=== PATIENT | female | born 1990 | race Caucasian/White ===

== ENCOUNTER 2020-12-28 17:22 | Emergency (ER) | payer MEDICAID, SELFPAY ==
[2020-12-28 17:33] VITALS: BP 129/78; PULSE 77; RESP 18; TEMP 36.8; O2SAT 97
[2020-12-28] MEDS: Ibuprofen 600 MG TAB PO (17:53)
[2020-12-28] MEDS: Acetaminophen 325 MG TAB 650 MG PO (17:53)
--- NOTE | 2020-12-28 18:18 | ED.GENADUL_ITS ---
Discharge Plan Disposition Patient Disposition: HOME Condition: Good Discharge Details Clinical Impression: Strain of gastrocnemius tendon of right lower extremity Primary Care Provider: Lynsey,Local ED Provider: Cinthia Falcon Home Meds and New Rx's Prescriptions: No Action estradiol [Estradiol Transdermal Patch] 0.1 mg/24 hr Patch Weekly RF: 0 Discharge Instructions Additional Instructions: Take ibuprofen and Tylenol as needed for pain You may take 2 mg of ibuprofen every 6-8 hours and Tylenol 650 mg every 4-6 hours Ice, weightbearing as tolerated You may use crutches as needed to assist you with ambulation Follow-up with your primary care physician in 1 week for reevaluation You may need physical therapy with persistent pain Return earlier should you have new or worsening complaints Compression can sometimes help with your symptoms Stand Alone Forms: Work Release Medical Decision Making Suspect gastrocnemius strain given clinical exam findings and mechanism Chadwick wrap applied, crutches supplied PCP follow-up Ice, ibuprofen, Tylenol Work note supplied Return precautions discussed and patient expressed standing Differential Diagnosis Differential Diagnosis: Fracture, strain, contusion, Achilles rupture Medical Records Medical records reviewed: Yes I reviewed the patient's medical records. HPI General Mode of arrival: ambulatory . Date/Time Provider Initiated Documentation: 12/28/20 17:36 . Limitations to Documentation: no limitations . Information obtained by: patient . HPI Narrative: This 30-year-old female presents with pain to her popliteal region with popping sensation after running during softball game. Patient was extending her foot while running when she felt a pop in her calf region and had instant pain. She was still able to ambulate. She denies any falls or additional injuries. She states the pain is exacerbated with any pressure of standing. She is otherwise reportedly healthy. She denies any chance of . The event occurred just prior to arrival the pain is described as sharp Related Data Home Medications Medication Instructions Recorded Confirmed estradiol [Estradiol Transdermal 12/28/20 Patch] Allergies Allergy/AdvReac Type Severity Reaction Status Date / Time No Known Allergies Allergy Unverified 12/28/20 17:38 General Stated Complaint: Orthopedic DAHLIA: 3 Review of Systems Narrative: Review of systems obtained x3 aside from where indicated in HPI PFSH Social History Smoking risk assessment performed?: No Alcohol Intake: current Alcohol Intake frequency: holidays/special occasions only Substance use type: marijuana Do you feel safe at home: Yes Do you feel safe in your relationship?: Yes Exam Const General: cooperative Extrem Other: Pain with palpation of her proximal calf region, no obvious swelling, tenderness, no erythema, negative Roa test, neurovascularly intact, no knee instability, no obvious effusion, no tenderness with palpation of her femur or tib-fib region, no ankle tenderness, no hip tenderness Course Vital Signs Vital signs: Vital Signs Temperature 36.8 C 12/28/20 17:33 Pulse 77 12/28/20 17:33 Respiratory Rate 18 12/28/20 17:33 Blood Pressure 129/78 12/28/20 17:33 Pulse Oximetry 97 12/28/20 17:33 Temperature 36.8 C 12/28/20 17:33 Temperature Source Temporal Artery Scan 12/28/20 17:33 Pulse 77 12/28/20 17:33 Respiratory Rate 18 12/28/20 17:33 Respiratory Effort 12/28/20 17:42 Blood Pressure 129/78 12/28/20 17:33 Blood Pressure Position Supine 12/28/20 17:33 Pulse Oximetry 97 12/28/20 17:33 Oxygen Delivery Method Room Air 12/28/20 17:33 Oxygen Flow Rate 0 12/28/20 17:33 Pain Level 8 12/28/20 17:33
== END 2020-12-28 18:15 | disposition home or self-care (01) ==
PROVIDERS: Emergency Provider Physician Assistant
DX: S86.111A Strain of other muscle(s) and tendon(s) of posterior muscle group at lower leg level, right leg, initial encounter (principal); X50.9XXA Other and unspecified overexertion or strenuous movements or postures, initial encounter; Y93.64 Activity, baseball
CPT/HCPCS: 99283

== ENCOUNTER 2024-06-11 10:13 | Outpatient (CLI) | payer MEDICAID, SELFPAY ==
[2024-06-11 10:25] VITALS: BP 125/90; PULSE 73; RESP 18; TEMP 36.7; O2SAT 100
--- NOTE | 2024-06-11 10:27 | PDOC.PAIN ---
Date of service: 06/11/24 Time of Service: 11:10 Pain Managment Procedure Note Procedure Note Procedure Note: Diagnostic Lumbar Facet Joint Injection ? Location: Bilateral Lumbar Facet Joints ? Levels: Right L3-4, bilat L4-5, L5-S1 ? Pre-procedure Diagnosis: M47.817 Spondylosis without myelopathy or radiculopathy, lumbosacral region M47.816 Spondylosis without myelopathy or radiculopathy, lumbar region ? Post-procedure Diagnosis:? The same as above ? Sedation:? None ? Estimated blood loss:? less than 2 cc ? Surgeon: Owen Timmosn MD COMMENT: .Decision was made to proceed with intra-articular facet injections for the possibility of not having to do medial branch blocks and radiofrequency ablation if patient get long lasting relief (> 3 months). ? Procedure Detail:? The procedure and potential risks were explained to the patient and informed written consent was obtained. The patient was escorted to the procedure room and placed in the prone position. Pillows were utilized for proper positioning and comfort.? Time out was performed in the procedure room with nursing staff confirming the patient's identity, procedure to be performed, allergies, and any blood thinning or anti-platelet medications.? Sterile technique was maintained throughout the procedure.? The patient's lumbosacral area was prepped with chlorhexidine and draped in a sterile fashion. Lidocaine 1% was used to anesthetize the skin. An oblique fluoroscopic view was obtained, with visualization of the facet joint.? A 22gauge, Quincke needle was gently advanced through the facet capsule.? Needle placement was confirmed with fluoroscopy in AP, oblique, and lateral views by injecting 0.25cc of contrast.? 20 mg of Depomedrol and 0.5ml of 0.5% bupivacaine was injected into the capsule at L3-4 Right ,L4-5 and L5-S1 Bilateral. ? The patient tolerated the procedure well and was transported to recovery area for observation and discharge instructions. Permanent images saved and recorded. Plan:? Follow up prn COMMENT:Pain went from 10 to 08/10. Pain? 80 % better. Will use this as both diagnostic and potentially therapeutic.? With short-term relief from the level that it was not long-lasting then we will proceed with for LMBB #2 and possible radiofrequency ablation. Also consider basivertebral nerve ablation L5-S1.
[2024-06-11 10:47] VITALS: O2SAT 100
[2024-06-11 10:50] VITALS: O2SAT 100
[2024-06-11 11:00] VITALS: O2SAT 100
[2024-06-11 11:01] VITALS: BP 103/64; PULSE 45
--- NOTE | 2024-06-11 11:10 | DI.RAD_ITS ---
Exam(s) XR PAIN CLINIC LUMBAR SP 2V EXAM: XR PAIN CLINIC LUMBAR SP 2V CLINICAL HISTORY: Dx: Lumbar Spondylosis. TECHNIQUE: Fluoroscopy was provided for the referring physician for guidance with performing pain cl inic injection procedure. COMPARISON: No exams were available for comparison FINDINGS: Please see procedure note for details. Fluoro time: 60.3 seconds RADIATION DOSE DELIVERED: Faustinor=27.1 mGy
[2024-06-11] MEDS: Bupivacaine 0.5% Pres-Free 10 ML VIAL IJ (11:14)
[2024-06-11] MEDS: methylPREDNISolone ACETATE 80 MG/ML VIAL IJ (11:14)
[2024-06-11] MEDS: Omnipaque 240 MG/ML 50 ML BTL IJ (11:14)
[2024-06-11] MEDS: Nerve Block Tray 1 EACH MC (11:15)
== END 2024-06-11 10:14 | disposition home or self-care (01) ==
LOC: PC 10:14
PROVIDERS: PCP Family Medicine; Visit Provider Anesthesiology Pain Medicine
DX: M47.817 Spondylosis without myelopathy or radiculopathy, lumbosacral region (principal); M47.816 Spondylosis without myelopathy or radiculopathy, lumbar region
CPT/HCPCS: 00123; 64493; 64494; 64495; 72100; J0665; J1010; Q9967